=== PATIENT | female | born 1935 | race Caucasian/White ===

== ENCOUNTER 2018-12-23 18:36 | Inpatient (IN) ==
[2018-12-23] MEDS ORDERED: SODIUM CHLORIDE 0.9% 1,000 ML IV STA (19:15)
[2018-12-23] MEDS ORDERED: ENOXAPARIN 80 MG/0.8 ML SYRINGE SUBCUT SCH (19:30)
[2018-12-23] MEDS ORDERED: diphenhydrAMINE CAP 25 MG CAPSULE PO PRN (20:08)
[2018-12-23] MEDS ORDERED: NICOTINE 21 MG/24 HR PATCH TRANSDERM PRN (20:08)
[2018-12-23] MEDS ORDERED: hydrALAZINE 20 MG/1 ML VIAL IV PRN (20:08)
[2018-12-23] MEDS ORDERED: ACETAMINOPHEN 325 MG TABLET PO PRN (20:08)
[2018-12-23] MEDS ORDERED: ONDANSETRON 4 MG/2 ML VIAL IV PRN (20:08)
[2018-12-23] MEDS ORDERED: BISACODYL 5 MG TABLET PO PRN (20:08)
[2018-12-23] MEDS ORDERED: MEPERIDINE 25 MG/1 ML VIAL IV PRN (20:10)
[2018-12-23 23:01] LABS: Basophils % 0.1 % (0.0-0.8); Immature Granulocytes % 1.3 %; Immature Granulocytes Absolute 0.15 #; Lymphocytes # 0.8 10*3/uL (1.4-4.0); Lymphocytes % 7.2 % (21.3-54.2); Mean Corpuscular HGB Conc 32.3 GM/DL (32-36); Mean Corpuscular Volume 90.4 FL (87-102); Mean Platelet Volume 8.8 FL (9.6-12.0); Neutrophils % 86.4 % (38.7-73.9); Platelet Count 200 T/CUMM (130-400); Red Blood Count 3.43 MC/CUMM (3.8-5.5); Red Cell Distribution Width 14.8 % (9.3-17.3); White Blood Count 11.3 T/CUMM (4-12)
[2018-12-23 23:17] LABS: Calcium 9.6 MG/DL (8.5-10.1); Osmolality,Calculated 300.8 MOS/KG (273-304)
[2018-12-24] MEDS ORDERED: ENOXAPARIN 60 MG/0.6 ML SYRINGE SUBCUT SCH
[2018-12-24] MEDS: ALBUTEROL/IPRATROPIUM 3 ML NEB RESP TX SCH ×4 (00:21→19:35)
[2018-12-24] MEDS: guaiFENesin/DM ER 600-30 MG TABLET PO PRN ×2 (05:20→20:51)
[2018-12-24] MEDS: LOSARTAN/HCTZ 50-12.5 MG TABLET PO SCH (08:39)
[2018-12-24] MEDS ORDERED: cefTRIAXone 1,000 MG in SYRINGE 1 EACH IV SCH (09:00)
[2018-12-24] MEDS ORDERED: AZITHROMYCIN INJ 500 MG in SODIUM CHLORIDE 0.9% 250 ML IV SCH (09:00)
[2018-12-24] MEDS ORDERED: ALUMINUM/MAGNES/SIMETH MAX STR 30 ML UDCUP PO PRN (20:35)
[2018-12-25] MEDS: ALBUTEROL/IPRATROPIUM 3 ML NEB RESP TX SCH ×3 (00:40→13:25)
[2018-12-25 08:18] VITALS: BP 141/58
[2018-12-25] MEDS ORDERED: KETOROLAC 30 MG/1 ML VIAL IV ONE (08:40)
[2018-12-25] MEDS ORDERED: DEXAMETHASONE 4 MG/1 ML VIAL IM ONE (08:40)
[2018-12-25] MEDS ORDERED: methylPREDNISolone ACETATE 40 MG/1 ML VIAL IM ONE (08:40)
[2018-12-25] MEDS ORDERED: ORPHENADRINE 60 MG/2 ML VIAL IM ONE (08:41)
[2018-12-25] MEDS ORDERED: HYDROcodone/CHLORPHENIRAMINE ER 5 ML UDCUP PO ONE (08:53)
[2018-12-25] MEDS ORDERED: LEVOFLOXACIN 500 MG TABLET PO ONE (09:00)
[2018-12-25] MEDS: LOSARTAN/HCTZ 50-12.5 MG TABLET PO SCH (09:07)
[2018-12-25 10:26] LABS: Calcium 9.7 MG/DL (8.5-10.1)
[2018-12-26] MEDS ORDERED: LEVOFLOXACIN 250 MG TABLET PO SCH (09:00)
== END 2018-12-25 13:53 | disposition home or self-care (01) | DRG 947 ==
LOC: EDBD → EDUNIT# → N.ED 18:36 → N.EDINP 20:09 → SUATTDRO 20:09 → N.2E 20:44
PROVIDERS: ADMIT Emergency Medicine; ATTEND Internal Medicine